=== PATIENT | male | born 1955 | race Caucasian/White ===

== ENCOUNTER 2017-07-31 05:06 | Emergency (ER) | payer BC ==
[~2017-07-31] VITALS: Ht 177.8 cm; Wt 103.1 kg
[~2017-07-31 05:06] MED LIST: ADVAIR 100/501 DISK IH; ALBUTEROL SULF8.5 GM IH; ASPIR-LOW81 MG PO; CIALIS5 MG PO; CLOBETASOL PROP60 GM TP; LEVAQUIN750 MG PO; MOTRIN800 MG PO; NITROSTAT0.4 MG SL; PHENERGAN-CODE120 ML PO; PREDNISONE PO; PREDNISONE10 MG PO; PREDNISONE20 MG PO; PROAIR HFA8.5 GM IH; RAPAFLO8 MG PO; TRICOR48 MG PO; VIAGRA100 MG PO
[2017-07-31 05:56] LABS: INFLUENZA A VIRAL ANTIGEN NEGATIVE; INFLUENZA B VIRAL ANTIGEN NEGATIVE
[2017-07-31] MEDS ORDERED: ZITHROMAX Z-PA250 MG PO (06:05)
[2017-07-31] MEDS ORDERED: VENTOLIN HFA18 GM IH (06:05)
[2017-07-31 06:34] VITALS: BP 168/72
== END 2017-07-31 06:35 | disposition home or self-care (01) ==
LOC: EME 05:06
PROVIDERS: Emergency Medicine
DX: J40 Bronchitis, not specified as acute or chronic (principal)
CPT/HCPCS: 71020; 87502; 94640; 99281; 99283

== ENCOUNTER → 2018-03-21 | Outpatient (CLI) | payer BC ==
[~2018-03-21] MED LIST changes: +VENTOLIN HFA18 GM IH; +ZITHROMAX Z-PA250 MG PO
== END | disposition home or self-care (01) ==
LOC: RES 12:57
DX: J45.909 Unspecified asthma, uncomplicated (principal)
CPT/HCPCS: 94070; 94726; 94729